=== PATIENT | female | born 1985 | race Caucasian/White ===

== ENCOUNTER 2018-06-01 00:26 | Emergency (ER) | payer OTHER ==
--- NOTE | 2018-06-01 00:38 | PDOC ---
History of Present Illness - General Chief Complaint: Respiratory Stated Complaint: SOB Time Seen by Provider: 06/01/18 00:38 History Source: Patient Exam Limitations: No Limitations - History of Present Illness Initial Comments: 06/01/18 01:09 Preston 33 YOF with h/o asthma and guillan barre syndrome presenting with productive cough, sob x 3 weeks. Associated with left lateral chest wall pain worse with movement and coughing. Went to [facility] urgent care ~3 weeks ago, rxd xopenex. She has been taking her albuterol nebs Q12H and albuterol inhaler midday, with minimal relief. +productive yellow sputum. +cold weather precipitant and changes as potential trigger. No f/c, powell, dizziness, cp, AP, n/v/d. +sick contacts including niece/nephews with URI sx/cough. Father also with similar URI sx. No travel history Denies tobacco or ETOH or drug use. Denies allergens or precipitants. No history of intubations or ICU stay Past History - Past Medical History Allergies/Adverse Reactions: Allergies Allergy/AdvReac Type Severity Reaction Status Date / Time Penicillins Allergy Verified 06/01/18 00:27 Home Medications: Ambulatory Orders Albuterol 0.083% Nebulizer Siobhan [Ventolin 0.083% Nebulizer Soln -] 1 amp NEB QID PRN #50 amp 06/01/18 Albuterol 0.083% Nebulizer Siobhan [Ventolin 0.083%] 1 neb NEB QID PRN 06/01/18 Lidocaine 5% Patch [Lidoderm Patch -] 1 patch TP DAILY PRN #7 patch 06/01/18 predniSONE [Deltasone -] 40 mg PO DAILY 4 Days #8 tablet 06/01/18 Review of Systems - Review of Systems Able to Perform ROS?: Yes Comments:: 06/01/18 01:10 Constitutional: no fevers or chills. +weakness HEENT: no headache or dizziness. +congestion CVS: +chest wall pain. no syncope. Resp: +cough, sob. Abdomen: no abdominal pain, nausea or vomiting. Genitourinary: no urinary sx, hematuria. MUSCULOSKELETAL: No joint pain and swelling. No neck or back pain. SKIN: no redness or skin changes, no discharge, no rash. Hematologic: no easy bruising/bleeding. NEUROLOGIC: No headache, dizziness, LOC or altered mental status. No weakness, numbness or tingling. All other systems reviewed and negative, or as documented in HPI. *Physical Exam - Physical Exam Comments: 06/01/18 01:09 General: Well appearing, awake and alert, NAD. HEENT: NCAT, PERRL, EOMI, clear conjunctiva, anicteric, moist mucus membranes, clear oropharynx, no oral lesions.. Neck: neck supple, FROM Resp: CTAB, normal and even respirations, no respiratory distress, no wheezing or rhonchi CVS: RRR, no murmurs, 2+ peripheral pulses throughout, no peripheral edema Abdomen: soft, NTND, no peritoneal signs. Back: nontender, normal inspection and ROM MSK: no edema, ALEMAN x4, ROM intact. No clubbing or cyanosis. normal bulk and tone. Extrem: no calf tenderness Neuro: alert, oriented appropriately; no focal neurologic deficits Skin: warm and well perfused, cap refill <2 sec, normal color Medical Decision Making - Medical Decision Making 06/01/18 01:10 33 YOF with h/o asthma p/w asthma 2/2 URI x 3 weeks. no systemic sx or fever lungs clear, no respiratory distress. +coughing, nonproductive here Vitals wnl, normal sats ED course: duonebs x3, prednisone. analgesia, topical lidoderm patch for cough- related, chest wall pain. feels much improved after treatments. doubt pna, no focal lung findings, normal VS. well appearing. still likely viral etiology leading to asthma flare. avoid precipitants and triggers cold precipitants and URI, supportive care. can use albuterol nebs and /or inhaler Every 4-6 hours as needed for respiratory sx, wheezing steroids x 5 days total hydration encouraged warm air humidifier use. PCP followup, compliance with meds, return precautions discussed including worsening respiratory distress/sx, infection, needing the nebs/albuterol <Q2H . 06/01/18 01:44 06/01/18 01:45 *DC/Admit/Observation/Transfer Diagnosis at time of Disposition: Asthma, URI (upper respiratory infection) - Discharge Dispostion Disposition: HOME Condition at time of disposition: Stable Decision to Admit order: No - Prescriptions Prescriptions: Albuterol 0.083% Nebulizer Siobhan [Ventolin 0.083% Nebulizer Soln -] 1 amp NEB QID PRN #50 amp PRN Reason: Cough Lidocaine 5% Patch [Lidoderm Patch -] 1 patch TP DAILY PRN #7 patch PRN Reason: Pain predniSONE [Deltasone -] 40 mg PO DAILY 4 Days #8 tablet - Referrals Referrals: Ray Grier [Primary Care Provider] - - Patient Instructions Printed Discharge Instructions: DI for Asthma -- Adult, DI for Acute Bronchitis , DI for Viral Upper Respiratory Infection -- Adult Additional Instructions: still likely viral etiology/ viral upper respiratory infection/bronchitis leading to asthma flare up avoid precipitants and triggers such as cold weather, smoke exposure or other people with illnesses/coughing. supportive care. can use albuterol nebs and /or inhaler Every 4-6 hours as needed for respiratory symptoms, coughing, wheezing steroids (prednisone) x 5 days total you will be replenished albuterol nebulizer solution. no antibiotics are indicated as no symptoms suggestive of pneumonia. hydration and adequate encouraged hand washing and avoid spreading viral illnesses during the winter season follow up with primary doctor. - Post Discharge Activity
[2018-06-01 00:41] VITALS: BP 112/74; PULSE 74; TEMP 98.2; BMI 21.0
[2018-06-01] MEDS ORDERED: LIDOCAINE 5% TOPICAL PATCH TP ONE (00:57)
[2018-06-01] MEDS ORDERED: IBUPROFEN 400 MG TABLET (FP) PO ONE ×2 (00:57→01:01)
[2018-06-01] MEDS ORDERED: predniSONE 20 MG TABLET (UD) PO ONE (00:57)
[2018-06-01] MEDS ORDERED: predniSONE 10 MG TABLET (UD) ONE (01:00)
[2018-06-01] MEDS ORDERED: ALBUTEROL SO4 2.5/IPRATROPIUM 0.5 INH SOL 3 ML VIAL.NEB. NEB ONE ×2 (01:01→01:17)
[2018-06-01] MEDS ORDERED: predniSONE 20 MG TABLET (UD) ONE (01:01)
[2018-06-01] MEDS ORDERED: LIDOCAINE 5% TOPICAL PATCH ONE (01:01)
[2018-06-01] MEDS: ALBUTEROL SO4 2.5/IPRATROPIUM 0.5 INH SOL 3 ML VIAL.NEB. NEB SCH ×3 (01:06→01:34)
[2018-06-01] MEDS ORDERED: LIDOCAINE PATCH REMOVAL MC SCH (22:00)
== END 2018-06-01 01:46 | disposition home or self-care (01) ==
LOC: FER 00:26
PROC: 3E0F7GC Introduction of Other Therapeutic Substance into Respiratory Tract, Via Natural or Artificial Opening (ICD-10-PCS; principal; 2018-06-01)
DX: J45.909 Unspecified asthma, uncomplicated (principal); J06.9 Acute upper respiratory infection, unspecified; G61.0 Guillain-Barre syndrome; Z88.0 Allergy status to penicillin
CPT/HCPCS: 99281-25